=== PATIENT | male | born 1935 | race Caucasian/White ===

== ENCOUNTER 2024-03-10 18:36 | Inpatient (IN) | payer MEDICARE, OTHER ==
[~2024-03-10] VITALS: Ht 182.9 cm; Wt 68.0 kg
[2024-03-10] MEDS ORDERED: DICL100G31 TP (19:03)
[2024-03-10] MEDS ORDERED: MELA5TAB21 PO (19:03)
[2024-03-10] MEDS ORDERED: TAMS-3 PO (19:03)
[2024-03-10] MEDS ORDERED: BISA-79 PR (19:03)
[2024-03-10] MEDS ORDERED: ACET-3117 PO (19:03)
[2024-03-10] MEDS ORDERED: QUET25TA PO (19:03)
[2024-03-10] MEDS ORDERED: ATOR10TA PO (19:03)
[2024-03-10] MEDS ORDERED: NA P133E RC (19:03)
[2024-03-10] MEDS ORDERED: MIRT-73 PO (19:03)
[2024-03-10] MEDS ORDERED: MAGN400O6 PO (19:03)
[2024-03-10] MEDS ORDERED: OXYB5TAB16 PO (19:03)
[2024-03-10] MEDS ORDERED: MULT-213 PO (19:03)
[2024-03-10] MEDS ORDERED: BRIM5DRO2 EACHEYE (19:03)
[2024-03-10] MEDS ORDERED: ASPI81TA31 PO (19:03)
[2024-03-10] MEDS ORDERED: GABA-532 PO (19:03)
[2024-03-10] MEDS ORDERED: BICT1TAB PO (19:03)
[2024-03-10 19:23] LABS: BASOPHILS % (AUTO) 0.3 % (0.0-2.0); EOSINOPHILS # (AUTO) 0.1 K/uL (0.0-0.7); EOSINOPHILS % (AUTO) 1.7 % (0.0-7.0); HEMATOCRIT 41.6 % (36.7-47.1); HEMOGLOBIN 13.7 g/dL (12.5-16.3); LYMPHOCYTES # (AUTO) 0.8 K/uL (0.8-4.8); LYMPHOCYTES % (AUTO) 10.4 % (20.5-51.5); MEAN CORPUSCULAR HEMOGLOBIN 31.8 uug (23.8-33.4); MEAN CORPUSCULAR HGB CONC 33 g/dL (32.5-36.3); MEAN CORPUSCULAR VOLUME 96.4 fL (73.0-96.2); MONOCYTES # (AUTO) 0.6 K/uL (0.1-1.30); MONOCYTES % (AUTO) 8.1 % (0.0-11.0); NEUTROPHILS % (AUTO) 79.5 % (38.5-71.5); PLATELET COUNT (AUTO) 170 K/uL (152-348); RED BLOOD CELL COUNT(AUTO) 4.32 MIL/uL (4.06-5.63); RED CELL DISTRIBUTION WIDTH 13.3 % (12.1-16.2); WHITE BLOOD COUNT (AUTO) 7.5 K/uL (3.6-10.2)
[2024-03-10 19:26] LABS: DIFFERENTIAL COMMENT 1
[2024-03-10 19:33] LABS: CALCIUM 8.9 mg/dL (8.5-10.1); CARBON DIOXIDE 27 mmol/L (21-32); CHLORIDE 104 mmol/L (98-107); CREATININE 1.4 mg/dL (0.6-1.3); ETHANOL < 3 MG/DL (0-10); GLUCOSE 114 mg/dL (74-106); POTASSIUM 4.5 mmol/L (3.5-5.1); SODIUM SERUM 139 mmol/L (136-145); UREA NITROGEN, BLOOD 37 mg/dL (7-18)
[2024-03-10 19:40] LABS: ALANINE AMINOTRANSFERASE 11 U/L (16-63); ALBUMIN 3.4 g/dL (3.4-5.0); ALKALINE PHOSPHATASE 125 U/L (50-136); ASPARTATE AMINOTRANSFERASE 7 U/L (15-37); BILIRUBIN,DIRECT 0.1 mg/dL (0.0-0.2); BILIRUBIN,TOTAL 0.3 mg/dL (0.2-1.0); TOTAL PROTEIN, SERUM 6.9 g/dL (6.4-8.2)
[2024-03-10 19:42] LABS: ACETAMINOPHEN < 2.0 ug/mL (10-30)
[2024-03-10] MEDS ORDERED: FLEET ENEMA 133 ML BOTTLE RC PRN (21:45)
[2024-03-10] MEDS: QUETIAPINE FUMARATE 25 MG TABLET PO SCH (21:45)
[2024-03-10] MEDS: TAMSULOSIN HCL 0.4 MG CAP.SR.24H PO SCH (21:45)
[2024-03-10] MEDS ORDERED: BISACODYL 5 MG TABLET.DR PO PRN (21:45)
[2024-03-10] MEDS ORDERED: ONDANSETRON 4 MG/2 ML VIAL IV PRN (22:00)
[2024-03-10] MEDS ORDERED: ACETAMINOPHEN 325 MG TABLET PO PRN (22:00)
[2024-03-10 22:16] LABS: *AMPHETAMINE, URINE NEGATIVE (NEGATIVE); *BARBITURATE, URINE NEGATIVE (NEGATIVE); *BENZODIAZEPINE, URINE NEGATIVE (NEGATIVE); *BILIRUBIN,URIN NEGATIVE (NEGATIVE); *BLOOD, URINE NEGATIVE (NEGATIVE); *CANNABINOID, URINE NEGATIVE (NEGATIVE); *CLARITY,URINE CLEAR (CLEAR); *COCCAINE, URINE NEGATIVE (NEGATIVE); *COLOR,URINE YELLOW (YELLOW); *KETONES,URINE NEGATIVE (NEGATIVE); *OPIATE, URINE NEGATIVE (NEGATIVE); *PHENCYCLIDINE SCREEN,URINE NEGATIVE (NEGATIVE); *PROTEIN,URINE NEGATIVE (NEGATIVE); *UROBILINOGEN,URINE 0.2 E.U./dl (NORMAL); FENTANYL, URINE NEGATIVE (NEGATIVE); LEUKOCYTE ESTERASE ,URINE NEGATIVE (NEGATIVE); NITRITE, URINE NEGATIVE (NEGATIVE); PH,URINE 6.5 (5.0-8.0); UGLUCOSE NEGATIVE (NEGATIVE)
[2024-03-10] MEDS: IV 1/2NS 1000 ML 1,000 ML IV PRN (23:02)
[2024-03-10 23:20] VITALS: BP 125/75; TEMP 98.2; O2SAT 97
[2024-03-11] VITALS: BP 133/73; TEMP 98.7; O2SAT 97
[2024-03-11 06:00] VITALS: BP_SYST 111; BP_SYST 156; BP_DIAS 54; BP_DIAS 89; TEMP 97.8; TEMP 98.3; O2SAT 92; O2SAT 98
[2024-03-11] MEDS: PANTOPRAZOLE SODIUM 40 MG TABLET.DR PO SCH (06:17)
[2024-03-11 07:42] LABS: BASOPHILS % (AUTO) 0.3 % (0.0-2.0); EOSINOPHILS # (AUTO) 0.1 K/uL (0.0-0.7); EOSINOPHILS % (AUTO) 2.1 % (0.0-7.0); HEMATOCRIT 41.2 % (36.7-47.1); HEMOGLOBIN 13.9 g/dL (12.5-16.3); LYMPHOCYTES # (AUTO) 1.1 K/uL (0.8-4.8); LYMPHOCYTES % (AUTO) 16.5 % (20.5-51.5); MEAN CORPUSCULAR HEMOGLOBIN 32.3 uug (23.8-33.4); MEAN CORPUSCULAR HGB CONC 34 g/dL (32.5-36.3); MEAN CORPUSCULAR VOLUME 95.4 fL (73.0-96.2); MONOCYTES # (AUTO) 0.6 K/uL (0.1-1.30); MONOCYTES % (AUTO) 8.1 % (0.0-11.0); PLATELET COUNT (AUTO) 161 K/uL (152-348); RED BLOOD CELL COUNT(AUTO) 4.32 MIL/uL (4.06-5.63); RED CELL DISTRIBUTION WIDTH 13.1 % (12.1-16.2); WHITE BLOOD COUNT (AUTO) 6.9 K/uL (3.6-10.2)
[2024-03-11 07:46] VITALS: BP 146/75; TEMP 98; O2SAT 97
[2024-03-11 07:48] LABS: DIFFERENTIAL COMMENT 1
[2024-03-11 08:11] LABS: THYROID STIMULATING HORMONE 1.176 mIU/mL (0.358-3.740)
[2024-03-11 08:21] LABS: ALANINE AMINOTRANSFERASE 12 U/L (16-63); ALBUMIN 3.3 g/dL (3.4-5.0); ALKALINE PHOSPHATASE 122 U/L (50-136); ASPARTATE AMINOTRANSFERASE 7 U/L (15-37); BILIRUBIN,TOTAL 0.4 mg/dL (0.2-1.0); CALCIUM 8.5 mg/dL (8.5-10.1); CARBON DIOXIDE 28 mmol/L (21-32); CHLORIDE 104 mmol/L (98-107); CHOLESTEROL 174 mg/dL (<200); CREATININE 1.3 mg/dL (0.6-1.3); GLUCOSE 92 mg/dL (74-106); HDL CHOLESTEROL 50 mg/dL (40-60); MAGNESIUM 2.1 mg/dL (1.8-2.4); POTASSIUM 4.1 mmol/L (3.5-5.1); SODIUM SERUM 138 mmol/L (136-145); TOTAL PROTEIN, SERUM 6.7 g/dL (6.4-8.2); TRIGLYCERIDES 103 MG/DL (30-150); UREA NITROGEN, BLOOD 35 mg/dL (7-18)
[2024-03-11 08:29] LABS: IRON, SERUM 53 ug/dL (50-175)
[2024-03-11] MEDS: OXYBUTYNIN CHLORIDE 5 MG TABLET PO SCH (09:00)
[2024-03-11] MEDS: GABAPENTIN 100 MG CAPSULE PO SCH (09:00)
[2024-03-11] MEDS: ASPIRIN 81 MG TAB.CHEW PO SCH (09:00)
[2024-03-11] MEDS: MULTIVITAMINS,THERAPEUTIC TABLET PO SCH (09:00)
[2024-03-11 11:46] VITALS: BP 141/76; TEMP 97.9; O2SAT 96
[2024-03-11 15:58] VITALS: BP 141/81; TEMP 97.6; O2SAT 98
[2024-03-11] MEDS: MIRTAZAPINE 15 MG TAB.RAPDIS PO SCH (17:38)
[2024-03-11] MEDS ORDERED: Medication Not On Formulary EA (Melatonin 5 MG) PO SCH (18:00)
[2024-03-11 20:20] VITALS: BP 154/82; TEMP 97.8; O2SAT 100
[2024-03-11] MEDS: MELATONIN 3 MG TABLET PO SCH (21:00)
[2024-03-11] MEDS: ATORVASTATIN 10 MG TABLET PO SCH (21:00)
[2024-03-11] MEDS: DIVALPROEX 125 MG TABLET.DR PO SCH (21:00)
[2024-03-12 05:47] VITALS: BP 127/91; TEMP 97.9; O2SAT 97
[2024-03-12] MEDS: HALOPERIDOL LACTATE 5 MG/1 ML VIAL IM ONE (07:46)
[2024-03-12] MEDS: diphenhydrAMINE 50 MG/1 ML VIAL IM ONE (07:46)
[2024-03-12] MEDS ORDERED: OLANZAPINE 10 MG VIAL IM PRN (10:30)
[2024-03-12] MEDS ORDERED: QUETIAPINE FUMARATE 25 MG TABLET PO PRN (10:30)
[2024-03-12 12:10] VITALS: BP 111/73; TEMP 97.3; O2SAT 97
[2024-03-12 15:57] VITALS: BP 149/81; TEMP 97.6; O2SAT 97
[2024-03-12] MEDS: MIRTAZAPINE 15 MG TAB.RAPDIS PO SCH (18:00)
[2024-03-12] MEDS ORDERED: ENOXAPARIN SODIUM 40 MG/0.4 ML DISP.SYRIN SQ SCH (21:00)
== END 2024-03-12 18:26 | DRG 178 ==
LOC: ER 18:37 → TELE3 22:10 → MEDSURG3 03-11 22:45
PROVIDERS: ADMIT Internal Medicine; ATTEND Nurse Practitioner Acute Care
DX: U07.1 COVID-19 (principal); F03.911 Unspecified dementia, unspecified severity, with agitation; N17.9 Acute kidney failure, unspecified; F03.93 Unspecified dementia, unspecified severity, with mood disturbance; G93.40 Encephalopathy, unspecified; F20.9 Schizophrenia, unspecified; N32.81 Overactive bladder; E86.0 Dehydration; R79.1 Abnormal coagulation profile; I25.10 Atherosclerotic heart disease of native coronary artery without angina pectoris; Z79.899 Other long term (current) drug therapy; F32.A Depression, unspecified; E78.5 Hyperlipidemia, unspecified; N18.32 Chronic kidney disease, stage 3b; N40.0 Benign prostatic hyperplasia without lower urinary tract symptoms; Z87.891 Personal history of nicotine dependence; Z91.199 Patient's noncompliance with other medical treatment and regimen due to unspecified reason; Z85.828 Personal history of other malignant neoplasm of skin; H26.9 Unspecified cataract; Z79.82 Long term (current) use of aspirin
CPT/HCPCS: 36415; 71045; 83550; 83735; 84100; 84443; 85025; 93005; A4663; G0378; G0480; J1200; J1630

== ENCOUNTER 2024-03-12 19:04 | Inpatient (IN) | payer MEDICARE, OTHER ==
[~2024-03-12] VITALS: Ht 182.9 cm; Wt 66.7 kg
[~2024-03-12 19:04] MED LIST: ACET-3117 PO; ASPI81TA31 PO; ATOR10TA PO; BICT1TAB PO; BISA-79 PR; BRIM5DRO2 EACHEYE; DICL100G31 TP; GABA-532 PO; MAGN400O6 PO; MELA5TAB21 PO; MIRT-73 PO; MULT-213 PO; NA P133E RC; OXYB5TAB16 PO; QUET25TA PO; TAMS-3 PO
[2024-03-12] MEDS: BLOOD SUGAR DIAGNOSTIC 1 EACH STRIP VI ONE (20:15)
[2024-03-12] MEDS ORDERED: QUETIAPINE FUMARATE 25 MG TABLET PO PRN (20:15)
[2024-03-12] MEDS ORDERED: ACETAMINOPHEN 325 MG TABLET PO PRN (20:15)
[2024-03-12] MEDS ORDERED: MAG HYDROX/AL HYDROX/SIMETH 30 ML LIQUID UDC PO PRN (20:15)
[2024-03-12] MEDS ORDERED: TEMAZEPAM 7.5 MG CAPSULE PO PRN (20:15)
[2024-03-12] MEDS ORDERED: MAGNESIUM HYDROXIDE 30 ML LIQUID UDC PO PRN (20:15)
[2024-03-12] MEDS: TAMSULOSIN HCL 0.4 MG CAP.SR.24H PO SCH (21:00)
[2024-03-12] MEDS ORDERED: FLEET ENEMA 133 ML BOTTLE RC PRN (21:00)
[2024-03-12] MEDS: ATORVASTATIN 10 MG TABLET PO SCH (21:00)
[2024-03-12] MEDS ORDERED: MELATONIN 3 MG TABLET PO SCH (21:00)
[2024-03-12 21:49] VITALS: BP 143/75; TEMP 98.2; O2SAT 97
[2024-03-13 07:30] VITALS: BP 112/64; TEMP 98; O2SAT 98
[2024-03-13] MEDS: MULTIVIT, IRON, MIN NO. 8, FA TABLET PO SCH (09:00)
[2024-03-13] MEDS: GABAPENTIN 100 MG CAPSULE PO SCH (09:00)
[2024-03-13] MEDS: ASPIRIN 81 MG TAB.CHEW PO SCH (09:00)
[2024-03-13] MEDS ORDERED: Bictegrav/Emtricit/Tenofov Ala (Biktarvy 50-200-25 mg Ta PO SCH (09:00)
[2024-03-13] MEDS: OXYBUTYNIN CHLORIDE 5 MG TABLET PO SCH (09:00)
[2024-03-13] MEDS: BRIMONIDINE 0.2% OPHT DROP 10 ML BOTTLE OP SCH (13:00)
[2024-03-13] MEDS: TIMOLOL MALEATE 0.5% OPHT DROP 5 ML BOTTLE OP SCH (13:00)
[2024-03-13 15:40] VITALS: BP 94/57; TEMP 98; O2SAT 98
[2024-03-13] MEDS ORDERED: ZOLPIDEM 5 MG TABLET PO PRN (18:15)
[2024-03-13 20:10] VITALS: BP 115/63; TEMP 98; O2SAT 98
[2024-03-13] MEDS: OLANZAPINE ZYDIS 5 MG TAB.RAPDIS PO SCH (20:45)
[2024-03-13] MEDS: DIVALPROEX 125 MG TABLET.DR PO SCH (20:45)
[2024-03-14 07:58] LABS: BASOPHILS % (AUTO) 0.3 % (0.0-2.0); EOSINOPHILS # (AUTO) 0.1 K/uL (0.0-0.7); EOSINOPHILS % (AUTO) 1.8 % (0.0-7.0); HEMATOCRIT 39.9 % (36.7-47.1); HEMOGLOBIN 13.4 g/dL (12.5-16.3); LYMPHOCYTES # (AUTO) 1.2 K/uL (0.8-4.8); LYMPHOCYTES % (AUTO) 16.9 % (20.5-51.5); MEAN CORPUSCULAR HGB CONC 34 g/dL (32.5-36.3); MEAN CORPUSCULAR VOLUME 95.3 fL (73.0-96.2); MONOCYTES # (AUTO) 0.6 K/uL (0.1-1.30); MONOCYTES % (AUTO) 8.4 % (0.0-11.0); NEUTROPHILS # (AUTO) 5.1 K/uL (1.8-8.9); NEUTROPHILS % (AUTO) 72.6 % (38.5-71.5); PLATELET COUNT (AUTO) 163 K/uL (152-348); RED BLOOD CELL COUNT(AUTO) 4.19 MIL/uL (4.06-5.63); RED CELL DISTRIBUTION WIDTH 13.2 % (12.1-16.2)
[2024-03-14 07:59] LABS: DIFFERENTIAL COMMENT 1
[2024-03-14 08:02] VITALS: BP 147/76; TEMP 97.6; O2SAT 98
[2024-03-14 08:04] LABS: ALANINE AMINOTRANSFERASE 14 U/L (16-63); ALBUMIN 3.3 g/dL (3.4-5.0); ALKALINE PHOSPHATASE 113 U/L (50-136); ASPARTATE AMINOTRANSFERASE 13 U/L (15-37); BILIRUBIN,TOTAL 0.5 mg/dL (0.2-1.0); CALCIUM 8.4 mg/dL (8.5-10.1); CARBON DIOXIDE 25 mmol/L (21-32); CHLORIDE 107 mmol/L (98-107); CREATININE 1.3 mg/dL (0.6-1.3); GLUCOSE 100 mg/dL (74-106); MAGNESIUM 2.1 mg/dL (1.8-2.4); PHOSPHOROUS 2.7 mg/dL (2.5-4.9); POTASSIUM 4.3 mmol/L (3.5-5.1); SODIUM SERUM 141 mmol/L (136-145); TOTAL PROTEIN, SERUM 6.7 g/dL (6.4-8.2); UREA NITROGEN, BLOOD 32 mg/dL (7-18)
[2024-03-14 16:35] VITALS: BP 170/83; TEMP 97.9; O2SAT 98
[2024-03-14 18:00] VITALS: BP 119/58; TEMP 97.6; O2SAT 97
[2024-03-14 20:40] VITALS: BP 115/64; TEMP 98; O2SAT 98
[2024-03-15 08:31] VITALS: BP 116/72; TEMP 98.1; O2SAT 98
[2024-03-15 16:28] VITALS: BP 96/59; TEMP 98; O2SAT 97
[2024-03-15 20:20] VITALS: BP 111/62; TEMP 98.1; O2SAT 96
[2024-03-16 08:10] VITALS: BP 144/85; TEMP 98.3; O2SAT 98
[2024-03-16 16:39] VITALS: BP 116/66; TEMP 98.1; O2SAT 98
[2024-03-16 21:34] VITALS: BP 117/66; TEMP 98.7; O2SAT 98
[2024-03-17 08:55] VITALS: BP 130/76; TEMP 98; O2SAT 98
[2024-03-17 15:33] VITALS: BP 103/63; TEMP 98; O2SAT 98
[2024-03-17 20:13] VITALS: BP 126/64; TEMP 98.1; O2SAT 98
[2024-03-18 08:09] VITALS: BP 128/72; TEMP 98.2; O2SAT 98
[2024-03-18 15:36] VITALS: BP 107/60; TEMP 98; O2SAT 99
[2024-03-18 20:15] VITALS: BP 101/56; TEMP 98.2; O2SAT 96
[2024-03-19 08:06] VITALS: BP 137/72; TEMP 98; O2SAT 98
== END 2024-03-19 15:30 | DRG 885 ==
LOC: GPS 19:04
PROVIDERS: ADMIT Psychiatry & Neurology Psychiatry; ATTEND Nurse Practitioner Acute Care
DX: F39 Unspecified mood [affective] disorder (principal); N18.32 Chronic kidney disease, stage 3b; F03.92 Unspecified dementia, unspecified severity, with psychotic disturbance; G93.40 Encephalopathy, unspecified; C44.41 Basal cell carcinoma of skin of scalp and neck; T37.5X5A Adverse effect of antiviral drugs, initial encounter; Y92.89 Other specified places as the place of occurrence of the external cause; Z86.16 Personal history of COVID-19; I25.10 Atherosclerotic heart disease of native coronary artery without angina pectoris; N40.0 Benign prostatic hyperplasia without lower urinary tract symptoms; E78.5 Hyperlipidemia, unspecified; Z79.899 Other long term (current) drug therapy; G62.9 Polyneuropathy, unspecified; Z91.148 Patient's other noncompliance with medication regimen for other reason; Z87.891 Personal history of nicotine dependence; F20.9 Schizophrenia, unspecified; H26.9 Unspecified cataract; Z91.199 Patient's noncompliance with other medical treatment and regimen due to unspecified reason
CPT/HCPCS: 36415; 83735; 84100; 85025